=== PATIENT | male | born 1970 | race Hispanic/Latino ===

== ENCOUNTER 2024-11-06 07:30 | Outpatient (RCR) | payer OTHER | END 2024-11-08 | LOC: OT 07:30 | PROVIDERS: ATTEND Family Medicine Sports Medicine | DX: M77.12 Lateral epicondylitis, left elbow (principal); M77.11 Lateral epicondylitis, right elbow ==

== ENCOUNTER 2024-11-23 08:00 | Outpatient (RCR) | payer OTHER | END 2024-12-08 | LOC: OT 08:00 | PROVIDERS: ATTEND Family Medicine Sports Medicine | DX: M77.12 Lateral epicondylitis, left elbow (principal); M77.11 Lateral epicondylitis, right elbow ==